=== PATIENT | female | born 2000 | race Caucasian/White ===

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

== ENCOUNTER → 2020-07-15 | Emergency (ER) | payer SELFPAY ==
[~2020-07-15] VITALS: Ht 162.6 cm; Wt 83.5 kg
[~2020-07-15] MED LIST changes: +AMOX500C PO; +AMOXICILLIN 250 MG CAPSULE PO ONE; +CEPHALEXIN 250 MG CAPSULE PO ONE; +LORA0.5T21 PO; -LORA0.5T96 PO; +metroNIDAZOLE 500 MG TABLET PO ONE
[2020-07-15 22:00] VITALS: BP 115/73
--- NOTE | 2020-07-15 22:30 | PHYS DOC ---
Past History Past Medical History: STD, UTI Additional Past Medical Histor: STREP Past Surgical History: No Surgical History Smoking: Non-smoker Alcohol Use: None Drug Use: None Adult General HPI HPI Patient is a 20-year-old female who presents with a chief complaint of sore throat and a past medical history significant for many episodes of strep throat that started a couple of days ago. States that she is also had a fever at home between 101 101. Denies any recent travel or known ill contacts. Denies chest pain, shortness of breath, abdominal pain, nausea, vomiting. States she had take anything for this. Patient has a second chief complaint of greenish vaginal discharge. States she has had this before and was positive for trichomonas and would like to be tested again for these. Review of Systems Review of Systems Review of systems otherwise unremarkable except noted in HPI Allergies Allergies Allergies Coded Allergies Type Severity Reaction Last Updated Verified No Known Drug Allergies 09/23/13 No Physical Exam Physical Exam Constitutional: Well developed, well nourished, no acute distress, non-toxic appearance. [] HENT: Normocephalic, atraumatic, bilateral external ears normal, oropharynx moist, no oral exudates, nose normal. [] Eyes: conjunctiva normal, no discharge. [] Neck: Normal range of motion, no tenderness, supple, no stridor. Cervical lymphadenopathy [] Cardiovascular:Heart rate regular rhythm, no murmur [] Lungs & Thorax: Bilateral breath sounds clear to auscultation [] Abdomen: soft, no tenderness, no masses, no pulsatile masses. [] Skin: Warm, dry, no erythema, no rash. [] Back: no CVA tenderness. [] Extremities: No tenderness, no cyanosis, no clubbing, ROM intact, no edema. [] Neurologic: Alert and oriented X 3, normal motor function, normal sensory function, no focal deficits noted. [] Psychologic: Affect normal, judgement normal, mood normal. [] EKG EKG [] Radiology/Procedures Radiology/Procedures [] Heart Score Risk Factors: Risk Factors: DM, Current or recent (<one month) smoker, HTN, HLP, family history of CAD, obesity. Risk Scores: Risk Factors: DM, Current or recent (<one month) smoker, HTN, HLP, family history of CAD, obesity. Course & Med Decision Making Course & Med Decision Making Patient is a 20-year-old female who presents with sore throat and vaginal di scharge Vital signs notable for tachycardia. Physical exam noted above. Initially strep positive. Trichomonas positive. While labs were still in process patient apparently just got up, walked out of her room and out the door of the emergency department and into a car and left without telling anybody. Called patient given contact information and number apparently did not seem to b e valid. [] Dragon Disclaimer Dragon Disclaimer This electronic medical record was generated, in whole or in part, using a voice recognition dictation system. Departure Departure: Disposition: 07 AMA/ELOPED/LWBS Condition: STABLE Referrals: ROLF BULLOCK (PCP) Scripts Amoxicillin (AMOXICILLIN) 500 Mg Capsule 1 CAP PO BID for strep throat for 10 Days, #19 CAP Prov: MICHAELA MOSCOSO MD 07/15/20 MICHAELA MOSCOSO MD Jul 15, 2020 22:30
[2020-07-15 23:12] LABS: BILIRUBIN,URINE NEG (NEG); CLARITY,URINE HAZY; COLOR,URINE YELLOW; GLUCOSE,URINE NEG (NEG); NITRITE,URINE NEG (NEG)
[2020-07-15 23:14] LABS: BACTERIA,URINE FEW /HPF (0-FEW); SQUAMOUS EPITHELIAL CELL,UR FEW /LPF; TRICHOMONAS,URINE PRESENT; WBC,URINE >40 /HPF (0-4)
[2020-07-17 19:07] LABS: CHLAMYDIA PROBE Positive (Negative)
== END ==
LOC: ER 22:00
DX: J02.0 Streptococcal pharyngitis (principal); A59.8 Trichomoniasis of other sites; B95.0 Streptococcus, group A, as the cause of diseases classified elsewhere; Z20.822 Contact with and (suspected) exposure to COVID-19; Z87.440 Personal history of urinary (tract) infections
CPT/HCPCS: 81001; 81025; 87086; 87480; 87491; 87510; 87591; 87660; 87880; 99283; U0003; 36415

== ENCOUNTER 2020-08-12 04:47 | Emergency (ER) | payer SELFPAY ==
[~2020-08-12] VITALS: Ht 162.6 cm; Wt 86.3 kg
[~2020-08-12 04:47] MED LIST changes: -AMOXICILLIN 250 MG CAPSULE PO ONE; -CEPHALEXIN 250 MG CAPSULE PO ONE; -metroNIDAZOLE 500 MG TABLET PO ONE
--- NOTE | 2020-08-12 04:56 | PHYS DOC ---
Past History Past Medical History: STD, UTI Additional Past Medical Histor: STREP Past Surgical History: No Surgical History Smoking: Non-smoker, Cigarettes Alcohol Use: Rarely Drug Use: None, Opiates General Adult HPI: HPI: ".. I did something stupid.. I took couple pills of fentanyl.... and a bar xanax.. I am a recovering narcotic addict,,, ".. " I supposed to be going to [place] tomorrow ...to be with my son and consider a drug rehab program.."..My other kids are with the grand parents in [place].. ... 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 ".. I ve been clean at least 3 weeks.. .." " I just want one last high.. before going to [place]..." Patient is a 20 year old female who presents with above hx and hx of respiratory compromise after taking street fentanyl and xanax. Paramedics found patient hypoxic and near apneic on their arrival. Pt. received 2 doses of nasal Narcan with return to alertness and breathing. Patient did vomit excessively afterwards. Patient history of prior narcotic dependency and abuse. Has been evaluated previously for drug rehab . Patient does have a standing appointment with drug rehab. Patient sister Rosemary at [phone] stated she had been doing well on her drug rehab. until tonight. Sister advised she would be with her tonight if she decided to leave. Patient currently refusing PAT eval. Pt. past history of anxiety, ADHD, G3 T3., Urinary tract infections, STDs. Review of Systems: Review of Systems: Constitutional: Denies fever or chills Eyes: Denies change in visual acuity HENT: Denies nasal congestion or sore throat Respiratory: Denies cough or shortness of breath Cardiovascular: Denies chest pain or edema GI: Complains of nausea, vomiting,. Bloody stools or diarrhea : Denies dysuria Musculoskeletal: Denies back pain or joint pain Integument: Denies rash Neurologic: Denies headache, focal weakness or sensory changes Endocrine: Denies polyuria or polydipsia Lymphatic: Denies swollen glands Psychiatric: History of narcotic dependence and narcotic abuse last year Family History: Family History: Noncontributory to presentation Current Medications: Current Meds: See nursing for home meds Allergies: Allergies: Allergies Coded Allergies Type Severity Reaction Last Updated Verified No Known Drug Allergies 09/23/13 No Physical Exam: PE: Constitutional: Well developed, well nourished, moderately acute distress, . HENT: Normocephalic, atraumatic, bilateral external ears normal, oropharynx moist, no oral exudates, nose normal. [] Eyes: PERRLA, EOMI, conjunctiva normal, no discharge. [] Neck: Normal range of motion, no tenderness, supple, no stridor. [] Cardiovascular: Tachycardia heart rate regular rhythm, no murmur [] Lungs & Thorax: Bilateral breath sounds equal apex with few scattered rhonchi on right lung fernandez auscultation [] Abdomen: Bowel sounds decreased,, soft, no tenderness, no masses, no pulsatile masses. [] Vomiting just prior to arrival. Skin: Warm, dry, no erythema, no rash. [] Back: No tenderness, no CVA tenderness. [] Extremities: No tenderness, no cyanosis, no clubbing, ROM intact, no edema. No cording appreciated] Neurologic: Alert and oriented X 3, moves all extremities on request, has distal sensory,, no focal deficits noted. DTRs +2 patella and brachial Psychologic: Affect sedate, judgement normal, mood normal. [] EKG: EKG: My interpretation EKG shows a sinus tachycardia 102 bpm. There is incomplete right bundle derrell block. But no findings of acute STEMI of contralateral changes. [] Radiology/Procedures: Radiology/Procedures: [][place] [address] IMAGING REPORT Signed PATIENT: CECE NATH ACCOUNT: [id number] : 2000 LOCATION: ER AGE: 20 SEX: F EXAM STATUS: REG ER ORD. PHYSICIAN: FER ROWE MD REASON: respiratory failure- narcotic od PROCEDURE: PORTABLE CHEST 1V Chest AP portable at 0517: Reason for examination: Narcotic overdose. Respiratory failure. The heart size is normal. Mediastinum is unremarkable. Lung fernandez are clear. No acute bony abnormalities are seen. Impression: No acute cardiopulmonary disease. Electronically signed by: Radha Hammond MD (08/12/2020 5:36 AM) [facility] DICTATED AND SIGNED BY: RADHA HAMMOND MD DATE: 08/12/2036 CC: FER ROWE MD; ROLF BULLOCK ~MTH0 0 Heart Score: C/O Chest Pain: No HEART Score for Chest Pain: HEART Score for Chest Pain Response (Comments) Value History Slighlty/Non-Suspicious 0 ECG Nonspecific Repolarizatio 1 Age < 45 0 Risk Factors 1 or 2 Risk Factors 1 Troponin < Normal Limit 0 Total 2 Risk Factors: Risk Factors: DM, Current or recent (<one month) smoker, HTN, HLP, family history of CAD, obesity. Risk Scores: Score 0 - 3: 2.5% MACE over next 6 weeks - Discharge Home Score 4 - 6: 20.3% MACE over next 6 weeks - Admit for Clinical Observation Score 7 - 10: 72.7% MACE over next 6 weeks - Early Invasive Strategies Course & Med Decision Making: Course & Med Decision Making Pertinent Labs and Imaging studies reviewed. (See chart for details) Patient currently declining inpatient drug rehab. Requesting discharge. UA still pending at time of shift change. Patient endorsed Dr. Davis at shift change if pt. elects to stay. Impression: 1. Drug OD- Narcotic and Benzo 2. Mild hypokalemia 3.4 3 . Glucose 164 4. History of polysubstance abuse 5. History of ADHD 6. UA positive for Meth. and Benzo's [] Dragon Disclaimer: Dragon Disclaimer: This electronic medical record was generated, in whole or in part, using a voice recognition dictation system. Departure Departure: Referrals: ROLF BULLOCK (PCP) [place] Disclaimer This chart was dictated in whole or in part using Voice Recognition software in a busy, high-work load, and often noisy Emergency Department environment. It may contain unintended and wholly unrecognized errors or omissions. Dragon Disclaimer This chart was dictated in whole or in part using Voice Recognition software in a busy, high-work load, and often noisy Emergency Department environment. It may contain unintended and wholly unrecognized errors or omissions. Dragon Disclaimer This chart was dictated in whole or in part using Voice Recognition software in a busy, high-work load, and often noisy Emergency Department environment. It may contain unintended and wholly unrecognized errors or omissions. FER ROWE MD Aug 12, 2020 04:56
[2020-08-12 05:20] LABS: BASO # 0.1 x10^3/uL (0.0-0.2); BASO % 1 % (0-3); EOS # 0.1 x10^3/uL (0.0-0.7); EOS % 1 % (0-3); HEMATOCRIT 45.4 % (36.0-47.0); LYMPH # 3.7 x10^3/uL (1.0-4.8); LYMPH % 35 % (24-48); MEAN CORPUSCULAR HEMOGLOBIN 31 pg (25-35); MEAN CORPUSCULAR HGB CONC 33 g/dL (31-37); MEAN CORPUSCULAR VOLUME 93 fL (79-100); MONO # 0.8 x10^3/uL (0.0-1.1); MONO % 8 % (0-9); NEUT # 5.8 x10^3uL (1.8-7.7); NEUT % 55 % (31-73); PLATELET COUNT 250 x10^3/uL (140-400); RED BLOOD COUNT 4.91 x10^6/uL (3.50-5.40); RED CELL DISTRIBUTION WIDTH 14.4 % (11.5-14.5); WHITE BLOOD COUNT 10.6 x10^3/uL (4.0-11.0)
[2020-08-12] MEDS ORDERED: IV RINGERS SOLUTION,LACTATED 1,000 ML IV SCH (05:30)
[2020-08-12 05:34] LABS: CALCIUM 8.9 mg/dL (8.5-10.1); GFR 70.7; POTASSIUM 3.4 mmol/L (3.5-5.1)
--- NOTE | 2020-08-12 05:39 | RAD ---
Chest AP portable at 0517: Reason for examination: Narcotic overdose. Respiratory failure. The heart size is normal. Mediastinum is unremarkable. Lung fernandez are clear. No acute bony abnormali ties are seen. Impression: No acute cardiopulmonary disease. Electronically signed by: Billie Sommer MD (08/12/2020 5:36 AM) [facility]
--- NOTE | 2020-08-12 05:39 | EKG ---
[address] [address] Test Date: 2020-08-12 Test Time: 05:17:06 Pat Name: CECE NATH Department: Room: Gender: F Inventory Technician: LEANNE : 2000 Requested By: FER ROWE Order Number: [id number] Reading MD: Measurements Intervals [place] Rate: 102 P: 54 ME: 134 QRS: 15 QRSD: 96 T: 24 QT: 354 QTc: 466 Interpretive Statements SINUS TACHYCARDIA R-S TRANSITION ZONE IN V LEADS DISPLACED TO THE LEFT INCOMPLETE RIGHT BUNDLE BRANCH BLOCK OTHERWISE NORMAL ECG RI6.02 No previous ECG available for comparison
[2020-08-12 05:40] LABS: MAGNESIUM 2.3 mg/dL (1.8-2.4)
[2020-08-12 06:12] VITALS: BP 113/68
[2020-08-12 07:09] LABS: BARBITURATES NEG (NEG); BENZODIAZEPINES POS (NEG); CANNABINOIDS NEG (NEG); COCAINE NEG (NEG); METHADONE NEG (NEG); OPIATES NEG (NEG); PHENCYCLIDINE NEG (NEG)
[2020-08-12 07:13] LABS: AMPHETAMINE/METHAMPHETAMINE POS (NEG)
[2020-08-12 07:15] LABS: BACTERIA,URINE MANY /HPF (0-FEW); BILIRUBIN,URINE NEG (NEG); CLARITY,URINE CLOUDY; COLOR,URINE YELLOW; GLUCOSE,URINE NEG (NEG); NITRITE,URINE NEG (NEG); SQUAMOUS EPITHELIAL CELL,UR MANY /LPF; UROBILINOGEN,URINE 0.2 mg/dL (0.2 mg/dL)
== END 2020-08-12 06:42 | disposition home or self-care (01) ==
LOC: ER 04:47
DX: T40.411A Poisoning by fentanyl or fentanyl analogs, accidental (unintentional), initial encounter (principal); T42.4X1A Poisoning by benzodiazepines, accidental (unintentional), initial encounter; E87.6 Hypokalemia; F19.10 Other psychoactive substance abuse, uncomplicated; F90.9 Attention-deficit hyperactivity disorder, unspecified type; F11.10 Opioid abuse, uncomplicated; Z87.440 Personal history of urinary (tract) infections; Y92.89 Other specified places as the place of occurrence of the external cause
CPT/HCPCS: 36415; 71045; 80048; 80307; 81001; 81025; 82550; 83735; 84484; 85025; 87086; 93005; 96360; 99285; G0480; J7120; 87147

== ENCOUNTER 2020-08-20 06:11 | Emergency (ER) | payer SELFPAY ==
[~2020-08-20] VITALS: Ht 162.6 cm; Wt 86.3 kg
[2020-08-20] MEDS ORDERED: IV NORMAL SALINE 1,000ML 1,000 ML IV SCH (06:30)
[2020-08-20] MEDS ORDERED: ONDANSETRON PF 4 MG/2 ML VIAL. IVP ONE (06:30)
--- NOTE | 2020-08-20 06:48 | PHYS DOC ---
Past History Past Medical History: No Pertinent History, STD, UTI Additional Past Medical Histor: STREP Past Surgical History: No Surgical History Smoking: Non-smoker, Cigarettes Alcohol Use: None Drug Use: None, Opiates Adult General HPI HPI Patient is a 20-year-old female with history of anxiety and narcotic dependence now presenting to emergency department after presumed opiate and benzodiazepine overdose. Patient was found by EMS after he was found to be unconscious. According to EMS she was unresponsive, hypoxic and somnolent and required an initial dose of Narcan. After the dose of Narcan patient did become more arousable Review of Systems Review of Systems Constitutional: Denies fever or chills [] Eyes: Denies change in visual acuity, redness, or eye pain [] HENT: Denies nasal congestion or sore throat [] Respiratory: Denies cough or shortness of breath [] Cardiovascular: No additional information not addressed in HPI [] GI: Denies abdominal pain, nausea, vomiting, bloody stools or diarrhea [] : Denies dysuria or hematuria [] Musculoskeletal: Denies back pain or joint pain [] Integument: Denies rash or skin lesions [] Neurologic: Denies headache, focal weakness or sensory changes [] Endocrine: Denies polyuria or polydipsia [] All other systems were reviewed and found to be within normal limits, except as documented in this note. Current Medications Current Medications Current Medications Medications (Trade) Dose Ordered Sig/Bessie Start Time Stop Time Status Last Admin Dose Admin Ondansetron HCl (Zofran) 4 mg 1X ONCE 08/20/20 06:30 08/20/20 06:35 DC Sodium Chloride 1,000 ml @ 1,000 mls/hr Q1H 08/20/20 06:30 08/20/20 07:29 Allergies Allergies Allergies Coded Allergies Type Severity Reaction Last Updated Verified No Known Drug Allergies 08/12/20 No Physical Exam Physical Exam Constitutional: Well developed, well nourished, no acute distress, non-toxic appearance. [] HENT: Normocephalic, atraumatic, bilateral external ears normal, oropharynx moist, no oral exudates, nose normal. [] Eyes: PERRLA, EOMI, conjunctiva normal, no discharge. [] Neck: Normal range of motion, no tenderness, supple, no stridor. [] Cardiovascular:Heart rate regular rhythm, no murmur [] Lungs & Thorax: Bilateral breath sounds clear to auscultation [] Abdomen: Bowel sounds normal, soft, no tenderness, no masses, no pulsatile masses. [] Skin: Warm, dry, no erythema, no rash. [] Back: No tenderness, no CVA tenderness. [] Extremities: No tenderness, no cyanosis, no clubbing, ROM intact, no edema. [] Neurologic: Alert and oriented X 3, normal motor function, normal sensory function, no focal deficits noted. [] Psychologic: Affect normal, judgement normal, mood normal. [] EKG EKG [] Radiology/Procedures Radiology/Procedures [] Heart Score C/O Chest Pain: No Risk Factors: Risk Factors: DM, Current or recent (<one month) smoker, HTN, HLP, family history of CAD, obesity. Risk Scores: Risk Factors: DM, Current or recent (<one month) smoker, HTN, HLP, family history of CAD, obesity. Course & Med Decision Making Course & Med Decision Making Pertinent Labs and Imaging studies reviewed. (See chart for details) 20F presenting with presumed opiate overdose after getting Narcan. Will obtain labs, provide fluids and observe the patient for minimum of 4 hours to ensure there is no return of opiate overdose. 0907 -patient and oriented x3. Vital signs stable. Patient is requesting to leave AGAINST MEDICAL ADVICE. Counseled patient regarding her ordered status and stated that at this time I cannot guarantee her safety as it was possible that she has a long-lasting opioid that could return of her unconscious state. Patient states that she understands she still wished to leave AGAINST MEDICAL ADVICE. Dragon Disclaimer Dragon Disclaimer This electronic medical record was generated, in whole or in part, using a voice recognition dictation system. Departure Departure: Impression: Primary Impression: Opioid overdose Disposition: 07 AMA/ELOPED/LWBS Condition: STABLE Referrals: ROLF BULLOCK (PCP) AODNAY BERRIOS MD Aug 20, 2020 06:48
[2020-08-20 07:16] LABS: BASO % 0 % (0-3); EOS # 0.1 x10^3/uL (0.0-0.7); EOS % 1 % (0-3); HEMATOCRIT 45.5 % (36.0-47.0); HEMOGLOBIN 15.1 g/dL (12.0-15.5); LYMPH # 2.5 x10^3/uL (1.0-4.8); LYMPH % 22 % (24-48); MEAN CORPUSCULAR HEMOGLOBIN 31 pg (25-35); MEAN CORPUSCULAR HGB CONC 33 g/dL (31-37); MEAN CORPUSCULAR VOLUME 93 fL (79-100); MONO # 0.6 x10^3/uL (0.0-1.1); MONO % 6 % (0-9); NEUT # 7.8 x10^3uL (1.8-7.7); NEUT % 71 % (31-73); PLATELET COUNT 210 x10^3/uL (140-400); RED BLOOD COUNT 4.88 x10^6/uL (3.50-5.40)
[2020-08-20 07:25] LABS: CREATININE 1.1 mg/dL (0.6-1.0); GFR 63.3; POTASSIUM 3.5 mmol/L (3.5-5.1)
[2020-08-20 07:26] LABS: PREG TEST PT QUAL NEGATIVE (NEG)
[2020-08-20 07:30] LABS: ALBUMIN 3.8 g/dL (3.4-5.0); ALBUMIN/GLOBULIN RATIO 1.1 (1.0-1.7); TOTAL BILIRUBIN 0.4 mg/dL (0.2-1.0); TOTAL PROTEIN 7.3 g/dL (6.4-8.2)
[2020-08-20 08:45] VITALS: BP 129/93
[2020-08-20 09:37] LABS: BARBITURATES NEG (NEG); BENZODIAZEPINES NEG (NEG); CANNABINOIDS POS (NEG); CLARITY,URINE CLOUDY; COCAINE NEG (NEG); COLOR,URINE YELLOW; METHADONE NEG (NEG); OPIATES NEG (NEG); PHENCYCLIDINE NEG (NEG)
[2020-08-20 09:38] LABS: BACTERIA,URINE FEW /HPF (0-FEW); BILIRUBIN,URINE NEG (NEG); GLUCOSE,URINE 250 mg/dL (NEG); HYALINE CASTS, URINE FEW /HPF; NITRITE,URINE NEG (NEG); SQUAMOUS EPITHELIAL CELL,UR MANY /LPF; UROBILINOGEN,URINE 0.2 mg/dL (0.2 mg/dL)
[2020-08-20 09:46] LABS: AMPHETAMINE/METHAMPHETAMINE POS (NEG)
--- NOTE | 2020-08-21 07:52 | EKG ---
[address] [address] Test Date: 2020-08-20 Test Time: 07:05:55 Pat Name: CECE NATH Department: Room: Gender: F Manufacturing Sales Representative: : 2000 Requested By: ADONAY BERRIOS Order Number: [id number] Reading MD: Measurements Intervals [place] Rate: P: [place]: QRS: QRSD: T: QT: QTc: Interpretive Statements
== END 2020-08-20 09:19 | disposition left against medical advice (07) ==
LOC: ER 06:11
DX: T40.601A Poisoning by unspecified narcotics, accidental (unintentional), initial encounter (principal); T42.4X1A Poisoning by benzodiazepines, accidental (unintentional), initial encounter; R40.20 Unspecified coma; R09.02 Hypoxemia; Z87.440 Personal history of urinary (tract) infections; Y92.89 Other specified places as the place of occurrence of the external cause
CPT/HCPCS: 36415; 80053; 80307; 81001; 82550; 83690; 84703; 85025; 93005; 96361; 96374; 99285; G0480; J2405; J7030